=== PATIENT | male | born 2000 | race Caucasian/White ===

== ENCOUNTER 2021-02-18 16:25 | Emergency (ER) | payer SELFPAY ==
[2021-02-18 16:27] VITALS: BP 158/90; PULSE 64; RESP 16; TEMP 36.7; O2SAT 98; BMI 31.1
--- NOTE | 2021-02-18 16:43 | ED.VIS.DENTA ---
History of Present Illness Chief Complaint: Dental Informant: Patient Onset: Weeks - several, worse x couple days Context: Gradual Onset Timing: Continuous Quality: ache/throb Location: R mandib molars Current Severity: Severe Maximum Severity: Severe Worsened by: eating Relieved by: - - nothing; tried excedrin and tylenol Associated Symptoms: - - No new symptoms, just worse pain. No fevers, swelling, bleeding, discharge. Narrative: Patient has been having gradual onset of dental pain for couple weeks, he saw the dentist, was told that his wisdom teeth are growing in horizontally and crowding the other teeth, and he has a diseased mandibular molar that also needs to be pulled. He is supposed to go back to get them pulled. He was put on no medications but the pain is worse now. Past Medical History - Allergies and Home Meds Allergies/Adverse Reactions: Allergies No Known Allergies Allergy (Verified 02/18/21 16:25) Primary Care Physician: NOT,DEFINED [Primary Care Provider] - Past Medical History: None Drugs: None Review of Systems General: Denies: Chills, Fever, Sweats Eyes: Denies: Visual changes - bilaterally, Diplopia ENT: Reports: - - Tooth ache. See HPI. No facial swelling.. Denies: Bilateral ear pain, Rhinorrhea Gastrointestinal: Denies: Abdominal pain, Nausea, Vomiting Skin: Denies: Rash, Wounds Neurological: Denies: Headache, Weakness, Numbness Physical Exam Vital Signs/Narrative: Vital Signs Temp Pulse Resp BP Pulse Ox 02/18/21 16:27 98.0 F 64 16 158/90 H 98 Inital Vital Signs reviewed: Yes General: Well nourished, Well developed, - - Well-appearing no distress Head: Normocephalic, Atraumatic ENT: Moist mucous membranes, No rhinorrhea. Negative for: Sinus tenderness Mouth/Throat: Normal inspection lips/gums, Normal oral mucosa, No focal abscess, Normal posterior oropharynx, No sublingual edema, Normal Stensen's duct, Focal dental decay - Tooth #31, Tenderness on tooth percussion - Tooth #31. #32 is still impacted, - - Normal voice.. Negative for: Trismus Neck: Supple, No lymphadenopathy, Nontender Respiratory: No distress Skin: Normal color, No Trauma Neurological: Alert, Oriented x3, Cranial nerves II-XII grossly intact, Normal Strength, Normal Sensation, Normal Gait Psychological: Normal affect, Normal Mood Diagnostic/Tx/Re-eval - Medical Decision Making We will place patient on amoxicillin given the severely carried tooth #31, in addition to tramadol for pain. Advised to follow-up closely with a dentist, which he plans on doing this week. ED Disposition - Plan for ED Patient: Disposition: Home or Assisted Living Diagnosis: Odontalgia, Dental decay Instructions: ED Dental Pain, ED Dental Cavity Prescriptions: traMADol [Ultram] 50 mg PO Q4H PRN PRN 3 Days #15 tablet PRN Reason: Pain Prescription Printed Referrals: Dentist,Your [STAFF PHYSICIAN] - As soon as possible
[2021-02-18] MEDS: traMADol 50 MG Tablet PO (16:59)
[2021-02-18] MEDS: Ibuprofen 600 MG Tablet PO (16:59)
== END 2021-02-18 17:09 | disposition home or self-care (01) ==
LOC: ED 16:58
PROVIDERS: Emergency Provider Emergency Medicine
DX: K08.89 Other specified disorders of teeth and supporting structures (principal); K02.9 Dental caries, unspecified; K01.1 Impacted teeth
CPT/HCPCS: 99283